=== PATIENT | female | born 1975 | race Caucasian/White ===

== ENCOUNTER 2017-10-30 16:32 | Emergency (ER) | payer OTHER ==
[~2017-10-30] VITALS: Ht 157.5 cm; Wt 61.7 kg
[~2017-10-30 16:32] MED LIST: PRENATAL CAPSU1 EACH
== END 2017-10-30 20:20 ==
LOC: ER 16:32
DX: J30.89 Other allergic rhinitis (principal)

== ENCOUNTER 2017-12-12 13:51 | Outpatient (CLI) | payer OTHER | END 2017-12-12 14:16 | disposition home or self-care (01) | LOC: MAMO-SONO 13:51 | DX: Z12.31 Encounter for screening mammogram for malignant neoplasm of breast (principal); N60.11 Diffuse cystic mastopathy of right breast; N60.12 Diffuse cystic mastopathy of left breast; R10.31 Right lower quadrant pain; R10.32 Left lower quadrant pain ==

== ENCOUNTER 2019-06-02 09:17 | Outpatient (CLI) | payer OTHER | END 2019-06-02 09:34 | disposition home or self-care (01) | LOC: TOM 09:17 | DX: K41.20 Bilateral femoral hernia, without obstruction or gangrene, not specified as recurrent (principal) ==

== ENCOUNTER → 2020-12-01 08:00 | Outpatient (CLI) | payer OTHER | END | disposition home or self-care (01) | LOC: LAB 08:00 | PROVIDERS: ATTEND Internal Medicine Cardiovascular Disease | DX: D64.89 Other specified anemias (principal); D68.8 Other specified coagulation defects; I10 Essential (primary) hypertension; E11.9 Type 2 diabetes mellitus without complications; E78.2 Mixed hyperlipidemia; E03.8 Other specified hypothyroidism; E55.9 Vitamin D deficiency, unspecified ==

== ENCOUNTER 2020-12-01 08:49 | Outpatient (CLI) | payer OTHER | END 2020-12-01 10:47 | disposition home or self-care (01) | LOC: MAMO-SONO 08:49 | PROVIDERS: ATTEND Internal Medicine Cardiovascular Disease | DX: M43.8X5 Other specified deforming dorsopathies, thoracolumbar region (principal); N64.89 Other specified disorders of breast; Z12.31 Encounter for screening mammogram for malignant neoplasm of breast; M46.47 Discitis, unspecified, lumbosacral region; M12.88 Other specific arthropathies, not elsewhere classified, other specified site ==

== ENCOUNTER 2020-12-01 10:32 | Outpatient (CLI) | payer OTHER | END 2020-12-01 10:53 | disposition home or self-care (01) | LOC: NUCLEAR 10:32 | PROVIDERS: ATTEND Internal Medicine Cardiovascular Disease | DX: I87.2 Venous insufficiency (chronic) (peripheral) (principal) ==

== ENCOUNTER 2022-04-30 10:31 | Outpatient (CLI) | payer OTHER | END 2022-04-30 10:39 | disposition home or self-care (01) | LOC: TOM 10:31 | PROVIDERS: ATTEND Internal Medicine Cardiovascular Disease | DX: R51.9 Headache, unspecified (principal) ==

== ENCOUNTER 2022-05-17 08:50 | Outpatient (CLI) | payer OTHER | END 2022-05-17 09:00 | disposition home or self-care (01) | LOC: NUCLEAR 08:50 | PROVIDERS: ATTEND Internal Medicine Cardiovascular Disease | DX: M40.47 Postural lordosis, lumbosacral region (principal); M19.90 Unspecified osteoarthritis, unspecified site | CPT/HCPCS: 78315; A9503 ==